=== PATIENT | male | born 1950 | race Caucasian/White ===

== ENCOUNTER → 2016-09-11 | Outpatient (CLI) | payer OTHER ==
[~2016-09-11] VITALS: Ht 182.9 cm; Wt 66.7 kg
[~2016-09-11] MED LIST: ANORO ELLIPTA1 EACH IH; CRESTOR10 MG PO
[2016-09-11 14:41] LABS: BASOPHIL COUNT 0.1 K/uL (0-0.1); EOSINOPHIL (%) 0.7 % (0-5); EOSINOPHIL COUNT 0.1 K/uL (0-0.3); HEMATOCRIT 43.4 % (38.0-50.0); IMMATURE GRANULOCYTE (%) 0.1 % (0.0-0.7); INSTRUMENT ABS NEUTROPHIL CT 4.3 K/uL; MCH 31.1 PG (29.0-34.0); MCHC 34.3 G/DL (30.0-36.0); MCV 90.6 FL (86-99); MEAN PLAT.VOLUME 9.1 uM^3 (9.0-12.4); MONOCYTE (%) 9.7 % (3-12); MONOCYTE COUNT 0.7 K/uL (0-0.8); NEUTROPHIL (%) 60.4 % (45-76); NEUTROPHIL COUNT 4.3 K/uL (1.8-6.4); PLATELET COUNT 262 K/uL (156-360); RBC DIS.WIDTH-CV 12.9 % (11.8-14.6); RBC DIS.WIDTH-SD 42.7 % (39-53); RED BLOOD COUNT 4.79 M/uL (4.00-5.50); WHITE BLOOD COUNT 7.1 K/uL (4.1-10.2)
[2016-09-11 14:46] LABS: INTER. NORMALIZED RATIO 1.1; PROTHROMBIN TIME 11.8 SEC (10.2-12.9)
[2016-09-11 14:49] LABS: PTT 27.5 SEC (25-37)
== END | disposition home or self-care (01) ==
LOC: AMB 14:12
PROVIDERS: Internal Medicine Pulmonary Disease
DX: J44.9 Chronic obstructive pulmonary disease, unspecified (principal); F17.200 Nicotine dependence, unspecified, uncomplicated; E78.5 Hyperlipidemia, unspecified; Z82.49 Family history of ischemic heart disease and other diseases of the circulatory system; Z80.9 Family history of malignant neoplasm, unspecified
CPT/HCPCS: 83880; 85025; 85610; 85730; 87070; 87205; 88108; J0461; J2175; J2250; J2550; J3010

== ENCOUNTER → 2016-12-10 | Outpatient (CLI) | payer OTHER ==
[2016-12-10 15:19] LABS: HEMATOCRIT 45.2 % (38.0-50.0); MCH 29.8 PG (29.0-34.0); MCHC 33.6 G/DL (30.0-36.0); MCV 88.6 FL (86-99); MEAN PLAT.VOLUME 10.3 uM^3 (9.0-12.4); PLATELET COUNT 311 K/uL (156-360); RBC DIS.WIDTH-CV 12.8 % (11.8-14.6); RBC DIS.WIDTH-SD 41.3 % (39-53); WHITE BLOOD COUNT 7.8 K/uL (4.1-10.2)
[2016-12-10 16:29] LABS: INTER. NORMALIZED RATIO 1.1; PROTHROMBIN TIME 12.1 SEC (10.2-12.9)
[2016-12-10 16:32] LABS: PTT 27.4 SEC (25-37)
== END | disposition home or self-care (01) ==
LOC: AMB 14:14
PROVIDERS: Internal Medicine Pulmonary Disease
DX: J60 Coalworker's pneumoconiosis (principal); J44.9 Chronic obstructive pulmonary disease, unspecified; F17.200 Nicotine dependence, unspecified, uncomplicated; Z91.19 Patient's noncompliance with other medical treatment and regimen; Z82.49 Family history of ischemic heart disease and other diseases of the circulatory system; Z80.9 Family history of malignant neoplasm, unspecified
CPT/HCPCS: 71010; 76001; 85027; 85610; 85730; 88305; J0461; J2175; J2250; J2310; J2550; J3010

== ENCOUNTER 2017-07-04 11:43 | Day surgery (SDC) | payer OTHER ==
[~2017-07-04] VITALS: Ht 182.9 cm; Wt 59.0 kg
[~2017-07-04 11:43] MED LIST changes: +PREDNISONE10 MG PO
[2017-07-04 12:12] LABS: BASOPHIL (%) 0.5 % (0-1); BASOPHIL COUNT 0.1 K/uL (0-0.1); EOSINOPHIL (%) 0.2 % (0-5); HEMOGLOBIN 13.2 G/DL (12.5-16.6); IMMATURE GRANULOCYTE (%) 0.6 % (0.0-0.7); LYMPHOCYTE (%) 14.4 % (15-42); LYMPHOCYTE COUNT 1.9 K/uL (1.0-2.8); MCH 29.1 PG (29.0-34.0); MCV 88.3 FL (86-99); MONOCYTE (%) 11.1 % (3-12); MONOCYTE COUNT 1.4 K/uL (0-0.8); NEUTROPHIL (%) 73.2 % (45-76); NEUTROPHIL COUNT 9.4 K/uL (1.8-6.4); PLATELET COUNT 485 K/uL (156-360); RBC DIS.WIDTH-CV 13.2 % (11.8-14.6); RBC DIS.WIDTH-SD 42.6 % (39-53); RED BLOOD COUNT 4.53 M/uL (4.00-5.50); WHITE BLOOD COUNT 12.9 K/uL (4.1-10.2)
[2017-07-04 12:19] LABS: INTER. NORMALIZED RATIO 1.3
[2017-07-04 12:21] LABS: PTT 26.7 SEC (25-37)
[2017-07-04 12:23] VITALS: BP 100/60
[2017-07-04] MEDS ORDERED: COLACE100 MG PO (16:10)
[2017-07-04] MEDS ORDERED: HYDROCODON-ACE1 EAC7 PO (16:10)
[2017-07-04 17:24] VITALS: BP 116/65
[2017-07-04 17:44] VITALS: BP 119/62
== END 2017-07-04 18:05 | disposition home or self-care (01) ==
LOC: SDC 11:43
PROVIDERS: Thoracic Surgery (Cardiothoracic Vascular Surgery)
PROC: 0BDD8ZX Extraction of Right Middle Lung Lobe, Via Natural or Artificial Opening Endoscopic, Diagnostic (ICD-10-PCS; principal; 2017-07-04)
PROC: 0B9D8ZX Drainage of Right Middle Lung Lobe, Via Natural or Artificial Opening Endoscopic, Diagnostic (ICD-10-PCS; principal; 2017-07-04)
PROC: 07B74ZX Excision of Thorax Lymphatic, Percutaneous Endoscopic Approach, Diagnostic (ICD-10-PCS; principal; 2017-07-04)
DX: C77.1 Secondary and unspecified malignant neoplasm of intrathoracic lymph nodes (principal); C34.90 Malignant neoplasm of unspecified part of unspecified bronchus or lung; E78.5 Hyperlipidemia, unspecified; J44.9 Chronic obstructive pulmonary disease, unspecified; Z87.891 Personal history of nicotine dependence
CPT/HCPCS: 85025; 85610; 85730; 86850; 86900; 86901; 88108; 88305; 88311; 88341 TC; 88342 TC; 93005; J0330; J0690; J2250; J2405

== ENCOUNTER → 2017-07-31 | Outpatient (CLI) | payer OTHER ==
[~2017-07-31] MED LIST changes: +COLACE100 MG PO; +HYDROCODON-ACE1 EAC7 PO
== END | disposition home or self-care (01) ==
LOC: OPR 08:43 → EDSTATUS 09:00 → OPR 09:00
PROC: 0JBC3ZX Excision of Pelvic Region Subcutaneous Tissue and Fascia, Percutaneous Approach, Diagnostic (ICD-10-PCS; principal; 2017-07-31)
DX: C79.89 Secondary malignant neoplasm of other specified sites (principal); C34.81 Malignant neoplasm of overlapping sites of right bronchus and lung; C77.1 Secondary and unspecified malignant neoplasm of intrathoracic lymph nodes; F17.210 Nicotine dependence, cigarettes, uncomplicated; C79.51 Secondary malignant neoplasm of bone; E78.5 Hyperlipidemia, unspecified
CPT/HCPCS: 77012; 88305; 88341 TC; 88342 TC; J3010